=== PATIENT | male | born 1960 | race Caucasian/White ===

== ENCOUNTER 2023-03-21 13:07 | Outpatient (CLI) | payer MEDICARE, BC ==
[~2023-03-21 13:07] MED LIST: Magnevist 469MG/ML 20 ML VIAL ONE
== END 2023-03-21 13:08 | disposition home or self-care (01) ==
LOC: CSHMRI 13:07
PROVIDERS: ATTEND Neurological Surgery
DX: Q06.8 Other specified congenital malformations of spinal cord (principal); M47.812 Spondylosis without myelopathy or radiculopathy, cervical region; M47.817 Spondylosis without myelopathy or radiculopathy, lumbosacral region
CPT/HCPCS: 72156; 72158; 82565